=== PATIENT | male | born 1980 | race Caucasian/White ===

== ENCOUNTER → 2017-01-08 | Outpatient (CLI) | payer MEDICAID, SELFPAY | LOC: M OUTALCOH 10:56 | PROVIDERS: ATTEND Psychiatry & Neurology Psychiatry | DX: F12.20 Cannabis dependence, uncomplicated (principal); F11.10 Opioid abuse, uncomplicated ==

== ENCOUNTER → 2017-02-15 | Outpatient (RCR) | payer MEDICAID, SELFPAY | LOC: M OUTALCOH 01-30 09:06 | PROVIDERS: ATTEND Psychiatry & Neurology Psychiatry | DX: F11.10 Opioid abuse, uncomplicated (principal); F12.20 Cannabis dependence, uncomplicated; F17.200 Nicotine dependence, unspecified, uncomplicated ==

== ENCOUNTER 2017-03-15 13:00 | Outpatient (RCR) | payer MEDICAID | END 2017-03-17 | LOC: M OUTALCOH 13:00 | PROVIDERS: ATTEND Psychiatry & Neurology Psychiatry | DX: F11.10 Opioid abuse, uncomplicated (principal); F12.20 Cannabis dependence, uncomplicated; F17.200 Nicotine dependence, unspecified, uncomplicated ==

== ENCOUNTER 2017-04-11 14:00 | Outpatient (RCR) | payer MEDICAID | END 2017-04-17 | LOC: M OUTALCOH 14:00 | PROVIDERS: ATTEND Psychiatry & Neurology Psychiatry | DX: F11.20 Opioid dependence, uncomplicated (principal); F12.20 Cannabis dependence, uncomplicated; F17.200 Nicotine dependence, unspecified, uncomplicated ==

== ENCOUNTER → 2017-04-22 | Outpatient (CLI) | payer MEDICAID ==
--- NOTE | 2017-04-23 02:40 | REP ---
Clinical: Left-sided sciatica and lumbago. Technique: AP, lateral, bilateral oblique, and coned-down views. Findings: Alignment is maintained. Straightening of normal lordosis is appreciated along with minimal endplate sclerosis and disc space narrowing suggested at the L5-S1 level. The vertebral bodies including transverse process and spinous processes are intact. There is no evidence for acute fracture / compression injury or subluxation. No evidence for spondylolysis or spondylolisthesis. Impression: Minimal degenerative changes suggested at the L5-S1 level. Consider MRI if the patient remains symptomatic. Signed by Bob Espinoza MD 04/23/2017 02:30 A
== END ==
LOC: M WUC 17:23
PROVIDERS: ATTEND Physician Assistant
DX: M54.42 Lumbago with sciatica, left side (principal); M51.37 Other intervertebral disc degeneration, lumbosacral region